=== PATIENT | female | born 1960 | race Caucasian/White ===

== ENCOUNTER → 2017-02-18 | Outpatient (CLI) | payer OTHER ==
[~2017-02-18] MED LIST: AMPYRA10 MG PO; BACLOFEN20 MG PO; BIOIDENTICAL HORMONE TOP; CALCIUM-MAG-ZI1 EACH PO; LEXAPRO 10 MG T10 M2 PO; LEXAPRO20 MG PO; LOVAZA1000 MG PO; MULTIVITAMINS PO; NEURONTIN600 MG PO; OXYTROL FOR WO1 EACH TOP; PREGNENOLONE1 GM PO; PROMETRIUM100 MG PO; SPIRONOLACTONE25 M1 PO; TESTIM5 GM; TYSABRI IV; VAGIFEM25 MCG VAG; VITAMIN D 5050000 I1 PO; VITAMIN D10000 UNIT PO; VIVELLE-DOT1 EAC1 TD
== END ==
LOC: RAD 13:24
DX: Z12.31 Encounter for screening mammogram for malignant neoplasm of breast (principal)

== ENCOUNTER → 2019-02-24 | Outpatient (CLI) | payer OTHER | LOC: RAD 00:56 | DX: Z12.31 Encounter for screening mammogram for malignant neoplasm of breast (principal) ==